=== PATIENT | male | born 1980 | race Caucasian/White ===

== ENCOUNTER 2020-09-06 21:46 | Emergency (ER) | payer MEDICAID ==
[~2020-09-06] VITALS: Ht 162.6 cm; Wt 74.8 kg
[2020-09-06 21:54] VITALS: Ht 162.6 cm; Wt 74.8 kg
[2020-09-07] MEDS ORDERED: NOR10T PO (02:39)
[2020-09-07 03:50] VITALS: BP 132/77
== END 2020-09-07 03:50 | disposition home or self-care (01) ==
LOC: ED 21:46
DX: S43.005A Unspecified dislocation of left shoulder joint, initial encounter (principal); W18.30XA Fall on same level, unspecified, initial encounter; Y93.89 Activity, other specified; Y92.89 Other specified places as the place of occurrence of the external cause; Y99.8 Other external cause status
CPT/HCPCS: J1885; J2270; J2704; J3010